=== PATIENT | female | born 1995 | race African-American/Black ===

== ENCOUNTER 2017-04-15 15:17 | Emergency (ER) | payer SELFPAY ==
[~2017-04-15] VITALS: Ht 167.6 cm; Wt 65.8 kg
[2017-04-15 15:20] VITALS: BP 130/63
[2017-04-15 15:35] LABS: BILIRUBIN,URINE NEGATIVE (NEG); GLUCOSE,URINE NEGATIVE (NEG); NITRITE,URINE POSITIVE (NEG); PROTEIN,URINE 100 mg/dL (NEG-TRACE)
--- NOTE | 2017-04-15 15:37 | PHYS DOC ---
Past Medical History Past Medical History: No Pertinent History Past Surgical History: No Surgical History Alcohol Use: None Drug Use: None Adult General Chief Complaint Chief Complaint: LOWER BACK PAIN OR INJURY HPI HPI Patient is a 21 year old female presents to the emergency department with a 3 days history of left back pain and and sharp pains in her left leg. She states the pain in her legs are sharp and occurs all the time. She states she took advil 400 mg yesterday without relief. Patient states her urine has been dark yellow. Patient has had decrease appetite. Patient is febrile here in the department. Review of Systems Review of Systems Constitutional: Denies fever or chills [] Eyes: Denies change in visual acuity, redness, or eye pain [] HENT: Denies nasal congestion or sore throat [] Respiratory: Denies cough or shortness of breath [] Cardiovascular: No additional information not addressed in HPI [] GI: Denies abdominal pain, nausea, vomiting, bloody stools or diarrhea [] : Denies dysuria or hematuria [] Musculoskeletal: left back pain with left lower leg pain Integument: Denies rash or skin lesions [] Neurologic: Denies headache, focal weakness or sensory changes [] Endocrine: Denies polyuria or polydipsia [] All other systems were reviewed and found to be within normal limits, except as documented in this note. Current Medications Current Medications Current Medications Medications (Trade) Dose Ordered Sig/Luan Start Time Stop Time Status Last Admin Dose Admin Ibuprofen (Motrin) 800 mg 1X ONCE 04/15/17 15:45 04/15/17 15:46 DC 04/15/17 15:43 800 MG Allergies Allergies Allergies Coded Allergies Type Severity Reaction Last Updated Verified No Known Drug Allergies 04/15/17 No Physical Exam Physical Exam Constitutional: Well developed, well nourished, no acute distress, non-toxic appearance. [] HENT: Normocephalic, atraumatic, bilateral external ears normal, oropharynx moist, no oral exudates, nose normal. [] Eyes: PERRLA, EOMI, conjunctiva normal, no discharge. [] Neck: Normal range of motion, no tenderness, supple, no stridor. [] Cardiovascular:Heart rate regular rhythm, no murmur [] Lungs & Thorax: Bilateral breath sounds clear to auscultation [] Skin: Warm, dry, no erythema, no rash. [] Back: No tenderness, left CVA tenderness. [] Extremities: No tenderness, no cyanosis, no clubbing, ROM intact, no edema. [] Neurologic: Alert and oriented X 3, normal motor function, normal sensory function, no focal deficits noted. [] Psychologic: Affect normal, judgement normal, mood normal. [] Current Patient Data Vital Signs Vital Signs Date Time Temp Pulse Resp B/P (MAP) Pulse Ox O2 Delivery O2 Flow Rate FiO2 04/15/17 15:20 102.3 124 20 99 Room Air 102.3 Lab Values Laboratory Tests Test 04/15/17 15:27 04/15/17 15:29 Urine Collection Type Unknown Urine Color Yellow Urine Clarity Cloudy Urine pH 6.0 Urine Specific [place] 1.010 Urine Protein 100 mg/dL (NEG-TRACE) Urine Glucose (UA) Negative mg/dL (NEG) Urine Ketones (Stick) 40 mg/dL (NEG) Urine Blood Moderate (NEG) Urine Nitrite Positive (NEG) Urine Bilirubin Negative (NEG) Urine Urobilinogen Dipstick 1.0 mg/dL (0.2 mg/dL) Urine Leukocyte Esterase Large (NEG) Urine RBC Occ /HPF (0-2) Urine WBC Tntc /HPF (0-4) Urine Bacteria Many /HPF (0-FEW) POC Urine HCG, Qualitative Hcg negative (Negative) EKG EKG [] Radiology/Procedures Radiology/Procedures [] Course & Med Decision Making Course & Med Decision Making Pertinent Labs and Imaging studies reviewed. (See chart for details) UA positive for large amount of leukocytes, positive for nitrates. Patient will be placed on Cipro with Zofran as cipro can cause nausea. Recommended plenty of fluids such as water and cranberry juice, avoid cranberry juice cocktail, caffeine, citrus fruits and alcohol as these are considered irritants to the bladder. Signs and symptoms to return to the emergency department has been provided. Patient agrees with discharge instructions, treatment regimen and followup recommendations. I've spoken with the patient and/or caregivers. I've explained the patient's condition, diagnosis and treatment plan based on information available to me at this time. I've answered the patient's and/or caregivers questions and addressed any concerns. The patient and/or caregivers have a good understanding the patient's diagnosis, condition and treatment plan as can be expected at this point. Vital signs have been stabilized. The patient's condition is stable for discharge from the emergency department. The patient will pursue further outpatient evaluation with her primary care provider or other designated consulting physician as outlined in the discharge instructions. Patient and/or caregivers are agreeable to this plan of care and follow-up instructions have been explained in detail. The patient and/or caregivers have received these instructions in written format and expressed understanding of these discharge instructions. The patient and her caregivers are aware that if any significant change in condition or worsening of symptoms should prompt him to immediately return to this of the closest emergency department. If an emergent department is not readily available I would encourage him to call 911. [] Dragon Disclaimer Dragon Disclaimer This electronic medical record was generated, in whole or in part, using a voice recognition dictation system. Departure Departure Impression: Primary Impression: UTI (urinary tract infection) Disposition: HOME, SELF-CARE Condition: STABLE Referrals: NO PCP (PCP) Patient Instructions: Urinary Tract Infection, [id number] Additional Instructions: Activity as tolerated Medication as prescribed Drink plenty of fluids such as water and cranberry juice Avoid cranberry juice cocktail, caffeine, carbonated beverages, citrus fruits and alcohol Followup with primary care provider in 7-10 days to make sure you have cleared the infection Return to emergency department as needed for signs and symptoms that become worse, Scripts Ondansetron (ZOFRAN ODT) 4 Mg Tab.rapdis 1 TAB SL Q8HRS, #10 TAB Prov: SANTOS RITTER APRN 04/15/17 Ciprofloxacin Hcl (CIPRO) 500 Mg Tablet 1 TAB PO BID, #14 TAB Prov: SANTOS RITTER APRN 04/15/17 Problem Qualifiers Primary Impression: UTI (urinary tract infection) Urinary tract infection type: site unspecified Hematuria presence: with hematuria Qualified Codes: N39.0 - Urinary tract infection, site not specified ; R31.9 - Hematuria, unspecified SANTOS RITTER APRN Apr 15, 2017 15:37
[2017-04-15] MEDS ORDERED: IBUPROFEN 800 MG TABLET. PO ONE (15:45)
[2017-04-15 15:49] LABS: BACTERIA,URINE MANY /HPF (0-FEW); RBC,URINE OCC /HPF (0-2); WBC,URINE TNTC /HPF (0-4)
[2017-04-15] MEDS ORDERED: CIPR500T94 PO (16:05)
[2017-04-15] MEDS ORDERED: ONDA4TAB10 SL (16:05)
== END 2017-04-15 16:18 | disposition home or self-care (01) ==
LOC: ER 15:17
DX: N39.0 Urinary tract infection, site not specified (principal); M79.662 Pain in left lower leg
CPT/HCPCS: 81001; 81025; 87086; 87186; 99284